=== PATIENT | female | born 1950 | race Two or more races ===

== ENCOUNTER → 2019-08-17 | Emergency (ER) | payer OTHER ==
[~2019-08-17] VITALS: Ht 157.5 cm; Wt 72.6 kg
[~2019-08-17] MED LIST: ATORVASTATIN CA40 MG; CALCIUM500 M2; GLIPIZIDE ER2.5 MG; LISINOPRIL2.5 MG; METFORMIN HCL1000 MG; VITAMIN B-121000 MC4
== END | disposition left against medical advice (07) ==
LOC: ER 00:27
DX: K29.60 Other gastritis without bleeding (principal)

== ENCOUNTER 2019-08-27 01:50 | Emergency (ER) | payer OTHER ==
[~2019-08-27] VITALS: Ht 157.5 cm; Wt 72.6 kg
== END 2019-08-27 22:28 | disposition home or self-care (01) ==
LOC: ER 01:50
DX: T42.8X1A Poisoning by antiparkinsonism drugs and other central muscle-tone depressants, accidental (unintentional), initial encounter (principal); R53.81 Other malaise; R10.84 Generalized abdominal pain; R51 Headache; G20 Parkinson's disease; G30.8 Other Alzheimer's disease; F02.80 Dementia in other diseases classified elsewhere, unspecified severity, without behavioral disturbance, psychotic disturbance, mood disturbance, and anxiety; Y92.89 Other specified places as the place of occurrence of the external cause